=== PATIENT | female | born 1975 | race Two or more races ===

== ENCOUNTER 2020-08-14 08:52 | Outpatient (CLI) | payer OTHER | END 2020-08-14 09:06 | disposition home or self-care (01) | LOC: SONOGRAMA 08:52 → RX STUDY 10:15 | PROVIDERS: ATTEND Obstetrics & Gynecology Gynecology | DX: N83.292 Other ovarian cyst, left side (principal); N84.0 Polyp of corpus uteri; D25.1 Intramural leiomyoma of uterus; N92.1 Excessive and frequent menstruation with irregular cycle; R10.2 Pelvic and perineal pain ==

== ENCOUNTER 2020-10-01 07:14 | Day surgery (SDC) | payer OTHER ==
[2020-10-01] MEDS ORDERED: IBU600 MG PO (10:00)
== END 2020-10-01 12:00 | disposition home or self-care (01) ==
LOC: CIR.AMB 07:14
PROVIDERS: ATTEND Obstetrics & Gynecology Gynecology
DX: D25.0 Submucous leiomyoma of uterus (principal); N84.0 Polyp of corpus uteri; Z20.822 Contact with and (suspected) exposure to COVID-19

== ENCOUNTER 2025-03-13 06:02 | Day surgery (SDC) | payer OTHER ==
[2025-03-08 08:02] VITALS: BP 126/85
[~2025-03-13] VITALS: Ht 160 cm; Wt 68.0 kg
[~2025-03-13 06:02] MED LIST: IBU600 MG PO
[2025-03-13] MEDS ORDERED: POVIDONE-IODINE 118 ML BOTT TOP ONE (10:00)
[2025-03-13] MEDS ORDERED: IBU800 MG PO (10:25)
[2025-03-13] MEDS ORDERED: NEURONTIN300 MG PO (10:26)
== END 2025-03-13 12:50 | disposition home or self-care (01) ==
LOC: CIR.AMB 06:02
PROVIDERS: ATTEND Obstetrics & Gynecology Gynecology
DX: N72 Inflammatory disease of cervix uteri (principal); R87.613 High grade squamous intraepithelial lesion on cytologic smear of cervix (HGSIL); Z88.5 Allergy status to narcotic agent; Z88.6 Allergy status to analgesic agent